=== PATIENT | male | born 1990 | race Caucasian/White ===

== ENCOUNTER 2018-04-17 21:52 | Emergency (ER) | END 2018-04-18 | disposition home or self-care (01) ==

== ENCOUNTER 2018-05-15 20:51 | Emergency (ER) | payer OTHER ==
[~2018-05-15] VITALS: Wt 79.3 kg
[~2018-05-15 20:51] MED LIST: AZIT250T PO; BENZ200C68 PO
[2018-05-15 20:55] VITALS: BP 137/69; PULSE 85; RESP 18
[2018-05-15] MEDS ORDERED: KETOROLAC 30 MG INJ IM STA (21:11)
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
== END 2018-05-15 21:40 | disposition home or self-care (01) ==
LOC: FTE 20:51
DX: R51 Headache (principal)
CPT/HCPCS: 96372; 99284; J1885

== ENCOUNTER 2018-10-27 16:32 | Emergency (ER) | payer OTHER ==
[~2018-10-27] VITALS: Ht 185.4 cm; Wt 79.1 kg
[2018-10-27 16:37] VITALS: BP 132/63; PULSE 85; RESP 16; Ht 185.4 cm; Wt 79.1 kg
[2018-10-27] MEDS ORDERED: HYDROCODONE/APAP (5/325) TAB PO ONE (17:00)
[2018-10-27] MEDS ORDERED: AMOX1TAB10 PO (17:19)
[2018-10-27] MEDS ORDERED: NAPR-985 PO (17:19)
--- NOTE | 2018-10-27 18:28 | ERD ---
ER Documentation Chief Complaint Chief Complaint clinic ref: L ear pain 'ruptured drum', unable to hear x3h. R ear pain. HPI 28-year-old male presents to the emergency department complaining of constant, 7/10 severity left ear pain and decreased hearing for the past 3 hours. He took Tylenol and ibuprofen at home with some relief. He denies any discharge from the ear. He denies any fevers, chills, headache, or other symptoms at this time. ROS All systems reviewed and are negative except as per history of present illness. Medications Home Meds Active Scripts Naproxen* (Naprosyn*) 500 Mg Tablet, 500 MG PO BID PRN for PAIN AND/OR INFLAMMAT ION, #30 TAB Prov:JANY SALCEDO PA-C 10/27/18 Amoxicillin/Potassium Clav (Amox-Clav 875-125 mg Tablet) 875-125 mg Tab, 1 TAB PO BID for 10 Days, #20 TAB Prov:JANY SALCEDO PA-C 10/27/18 Benzonatate* (Benzonatate*) 200 Mg Capsule, 200 MG PO TID PRN for COUGH, #15 CAP Prov:JANY SALCEDO PA-C 04/17/18 Azithromycin* (Zithromax*) 250 Mg Tablet, 250 MG PO .ZPACK DIRECTED, #6 TAB TAKE 500 MG (2 TABS) THE FIRST DAY THEN 250 MG (1 TAB) DAYS 2-5 Prov:JANY SALCEDO PA-C 04/17/18 Allergies Allergies: Uncoded Allergies: IVANIA (Allergy, Unknown, 04/17/18) PMhx/Soc History of Surgery: Yes (Tonsillectomy, B ankle surgery) Anesthesia Reaction: No Hx Neurological Disorder: No Hx Respiratory Disorders: No Hx Cardiac Disorders: No Hx Psychiatric Problems: No Hx Miscellaneous Medical Probl: No Hx Alcohol Use: No Hx Substance Use: No Hx Tobacco Use: No Smoking Status: Never smoker FmHx Family History: No diabetes Physical Exam Vitals Vital Signs Date Temp Pulse Resp B/P (MAP) Pulse Ox O2 O2 Flow FiO2 Time Delivery Rate 10/27/18 98.2 85 16 132/63 99 16:37 (86) Physical Exam Const: No acute distress Head: Atraumatic Eyes: Normal Conjunctiva ENT: Normal External Ears, Nose and Mouth. Left tympanic membrane is inflamed and there is purulent discharge present. There appears to be a tympanic membrane rupture at approximately 3 o'clock position. There is no edema of the external auditory canal. The right tympanic membrane shows some evidence of otosclerosis but no evidence of tympanic membrane erythema. External auditory canal on the right is normal in appearance. Neck: Full range of motion. No meningismus. Resp: Clear to auscultation bilaterally Cardio: Regular rate and rhythm, no murmurs Skin: No petechiae or rashes Ext: No cyanosis, or edema Neur: Awake and alert Psych: Normal Mood and Affect Results 24 hrs Current Medications Medications Dose Sig/Blossom Start Time Status Last (Trade) Ordered Route PRN Stop Time Admin Dose Reason Admin 1 tab ONCE ONCE 10/27/18 DC 10/27/18 Acetaminophen PO 17:00 17:03 / 10/27/18 17:01 Hydrocodone Bitart ([place] (5/325)) Procedures/MDM 20-year-old male presents to the emergency department complaining of left ear pain. History and physical examination most consistent with serous otitis media with tympanic membrane perforation. Patient will be treated as an outpatient with a prescription for Augmentin and naproxen and he was advised to follow-up with ENT physician within the next 24 to 48 hours and return to the department if he has any new or worsening or concerning symptoms. He understood and agreed with the diagnosis, plan, need for follow-up, and return precautions. No evidence of mastoiditis, sepsis, serous bacterial infection, meningitis, or other emergencies. Departure Diagnosis: Primary Impression: Otitis media, serous, TM rupture Condition: Fair Patient Instructions: Eardrum Rupture (Perforation) Referrals: [facility] YOU HAVE RECEIVED A MEDICAL SCREENING EXAM AND THE RESULTS INDICATE THAT YOU DO NOT HAVE A CONDITION THAT REQUIRES URGENT TREATMENT IN THE EMERGENCY DEPARTMENT. FURTHER EVALUATION AND TREATMENT OF YOUR CONDITION CAN WAIT UNTIL YOU ARE SEEN IN YOUR DOCTORS OFFICE WITHIN THE NEXT 1-2 DAYS. IT IS YOUR RESPONSIBILITY TO MAKE AN APPOINTMENT FOR FOLOW-UP CARE. IF YOU HAVE A PRIMARY DOCTOR --you should call your primary doctor and schedule an appointment IF YOU DO NOT HAVE A PRIMARY DOCTOR YOU CAN CALL OUR PHYSICIAN REFERRAL HOTLINE AT IF YOU CAN NOT AFFORD TO SEE A PHYSICIAN YOU CAN CHOSE FROM THE FOLLOWING [facility] [address] [facility] [address] [facility] [address] [facility] [address] [facility] [address] [facility]. [facility] [address] Additional Instructions: SPECIALIST: YOU HAVE A MEDICAL CONDITION WHICH REQUIRES YOU TO SEE A SPECIALIST WITHIN THE NEXT 1-2 DAYS. PLEASE FOLLOW UP WITH YOUR PRIMARY PHYSICIAN FOR REFFERAL.IF YOU DO NOT HAVE A PRIMARY CARE PHYSICIAN AND/OR YOU CAN NOT AFFORD TO SEE A PHYSICIAN THE FOLLOWING RESOURCES HAVE BEEN SUPPLIED TO YOU. IT IS YOUR RESPONSIBILITY TO BE SEEN BY THE SPECIALIST: ENT JANY SALCEDO PA-C Oct 27, 2018 18:28
== END 2018-10-27 17:25 | disposition home or self-care (01) ==
LOC: FTE 16:32
DX: H65.91 Unspecified nonsuppurative otitis media, right ear (principal)
CPT/HCPCS: 99283

== ENCOUNTER 2018-12-14 23:54 | Emergency (ER) | payer OTHER ==
[~2018-12-14] VITALS: Ht 185.4 cm; Wt 77.1 kg
[~2018-12-14 23:54] MED LIST changes: +ACET-141 PO; +AMOX1TAB10 PO; +IBUP-1561 PO; +NAPR-985 PO
[2018-12-15 00:11] VITALS: Ht 185.4 cm; Wt 77.1 kg
[2018-12-15] MEDS ORDERED: ACETAMINOPHEN 325 MG TAB PO ONE (02:00)
--- NOTE | 2018-12-15 03:13 | ERD ---
ER Documentation Chief Complaint Chief Complaint L FOOT SWELLING AFTER FALLING HPI 20-year-old male with no significant past medical history presents with left foot swelling status post fall x1 day. He states that he fell over a 3 feet porch wall and landed on his left foot subsequently developed pain and swelling. The pain is noted to be 10 out of 10, described as a sharp sensation, nonradiating, worse with movement, improved with rest. He has had 2 ankle surgeries in the past on the left side. And also one ankle surgery on the right side. Denies fever. Denies chest pain or shortness of breath. Denies abdominal pain, nausea, vomiting. No other modifying factors noted, no other treatments tried at home. ROS All systems reviewed and are negative except as per history of present illness. Medications Home Meds Active Scripts Ibuprofen* (Motrin*) 400 Mg Tab, 400 MG PO Q6H PRN for PAIN AND OR ELEVATED TEMP, #30 TAB Prov:VERONICA WOLF DO 12/15/18 Acetaminophen* (Acetaminophen*) 500 MG Extra Strength Tablet, 500 MG PO Q4H PRN for PAIN AND OR ELEVATED TEMP, #30 TAB Prov:VERONICA WOLF DO 12/15/18 Naproxen* (Naprosyn*) 500 Mg Tablet, 500 MG PO BID PRN for PAIN AND/OR INFLAMMATION, #30 TAB Prov:JANY SALCEDO PA-C 10/27/18 Amoxicillin/Potassium Clav (Amox-Clav 875-125 mg Tablet) 875-125 mg Tab, 1 TAB PO BID for 10 Days, #20 TAB Prov:JANY SALCEDO PA-C 10/27/18 Benzonatate* (Benzonatate*) 200 Mg Capsule, 200 MG PO TID PRN for COUGH, #15 CAP Prov:JANY SALCEDO PA-C 04/17/18 Azithromycin* (Zithromax*) 250 Mg Tablet, 250 MG PO .ZPACK DIRECTED, #6 TAB TAKE 500 MG (2 TABS) THE FIRST DAY THEN 250 MG (1 TAB) DAYS 2-5 Prov:JANY SALCEDO PA-C 04/17/18 Allergies Allergies: Uncoded Allergies: IVANIA (Allergy, Unknown, 04/17/18) PMhx/Soc Medical and Surgical Hx: pt denies Medical Hx History of Surgery: Yes (Tonsillectomy, B ankle surgery) Anesthesia Reaction: No Hx Neurological Disorder: No Hx Respiratory Disorders: No Hx Cardiac Disorders: No Hx Psychiatric Problems: No Hx Miscellaneous Medical Probl: No Hx Alcohol Use: No Hx Substance Use: No Hx Tobacco Use: No Smoking Status: Never smoker FmHx Family History: No coronary disease Physical Exam Vitals Vital Signs Date Temp Pulse Resp B/P (MAP) Pulse Ox O2 O2 Flow FiO2 Time Delivery Rate 12/15/18 98.0 80 16 117/68 97 00:11 (84) Physical Exam Const: No acute distress Resp: Clear to auscultation bilaterally Cardio: Regular rate and rhythm, no murmurs Skin: No petechiae or rashes Back: No midline or flank tenderness Neur: Awake and alert Psych: Normal Mood and Affect Lower Extremity -left: Skin: No laceration, left foot swelling noted Compartments: Soft Motor: Full active range of motion hip/knee/ankle/there is decreased range of motion of the left foot Sensation: Intact to light touch FDWS/MF/LF/P surfaces. Bones: Nontender pelvis/knee/proximal tibia/ malleoli/there is tenderness to palpation of the left foot diffusely Joints: No effusion or laxity Pulses/Perfusion: 2+ DP, Capillary refill < 2 seconds Results 24 hrs Current Medications Medications Dose Sig/Blossom Start Time Status Last (Trade) Ordered Route PRN Stop Time Admin Dose Reason Admin 650 mg ONCE ONCE 12/15/18 DC 12/15/18 Acetaminophen PO 02:00 12/15/18 01:58 (Tylenol 02:01 Tab) Procedures/MDM Medical Decision Making: Differential diagnosis includes but not limited to fracture, dislocation, muscle strain, ligamentous sprain, septic joint, osteomyelitis, gout, Patient appeared well on physical exam. There was tenderness over the left foot Patient was neurovascularly intact Patient denies fever, no recent infection, low suspicion for septic joint or osteomyelitis. ED course: Patient was given Tylenol. Symptoms improved with treatment. Imaging: X-ray Foot 3V Interpreted by me: Bones: Mildly displaced and comminuted fracture intra-articular base of the fifth metatarsal left side Joints: No dislocation Foreign body: None. Patient was provided with crutches and Ortho shoe, see procedure note below Splint Note Type: Ortho shoe Location: Left foot Indication: Fracture left foot Splint Assessment: Neurovascularly intact post splint placement with good fit. Prescription(s): Patient given prescription for supportive medication(s). Follow up: Patient advised to follow up with ortho surgery. Information for follow up provided. Patient advised to follow up with PCP in 1-2 days. Patient advised to return to ED for new or worsening symptoms. Patient stable on discharge from the ED. Disclaimer: Inadvertent spelling and grammatical errors are likely due to EHR/dictation software use and do not reflect on the overall quality of patient care. Also, please note that the electronic time recorded on this note does not necessarily reflect the actual time of the patient encounter. Departure Diagnosis: Primary Impression: Foot fracture Encounter type: initial encounter Fracture type: closed Laterality: left Qualified Codes: S92.902A - Unspecified fracture of left foot, initial encounter for closed fracture Condition: Fair Patient Instructions: Fracture, Foot Referrals: [facility] YOU HAVE RECEIVED A MEDICAL SCREENING EXAM AND THE RESULTS INDICATE THAT YOU DO NOT HAVE A CONDITION THAT REQUIRES URGENT TREATMENT IN THE EMERGENCY DEPARTMENT. FURTHER EVALUATION AND TREATMENT OF YOUR CONDITION CAN WAIT UNTIL YOU ARE SEEN IN YOUR DOCTORS OFFICE WITHIN THE NEXT 1-2 DAYS. IT IS YOUR RESPONSIBILITY TO MAKE AN APPOINTMENT FOR FOLOW-UP CARE. IF YOU HAVE A PRIMARY DOCTOR --you should call your primary doctor and schedule an appointment IF YOU DO NOT HAVE A PRIMARY DOCTOR YOU CAN CALL OUR PHYSICIAN REFERRAL HOTLINE AT IF YOU CAN NOT AFFORD TO SEE A PHYSICIAN YOU CAN CHOSE FROM THE FOLLOWING [facility]ICS [facility] [address] [facility]. [facility] [address] [facility] [address] [facility]. [facility] [address] [facility] [facility] [address] [facility] [address] [facility]. [facility] Urgent Care 7 a.m.- 11 p.m. Every Day of the Week NO APPOINTMENT OR AUTHORIZATION NEEDED Additional Instructions: Call your primary care doctor TOMORROW for an appointment during the next 1-2 days.See the doctor sooner or return here if your condition worsens before your appointment time. Follow up with orthopedic surgery VERONICA WOLF DO Dec 15, 2018 03:13
[2018-12-15 03:40] VITALS: BP 111/79; PULSE 63; RESP 18
== END 2018-12-15 03:52 | disposition home or self-care (01) ==
LOC: FTE 23:54
DX: S92.352A Displaced fracture of fifth metatarsal bone, left foot, initial encounter for closed fracture (principal); W19.XXXA Unspecified fall, initial encounter; Y92.9 Unspecified place or not applicable